=== PATIENT | male | born 1970 | race Caucasian/White ===

== ENCOUNTER 2019-10-13 08:39 | Observation (INO) | payer OTHER ==
[~2019-10-13] VITALS: Ht 193 cm; Wt 85.5 kg
[2019-10-13] MEDS ORDERED: METO25ER PO (09:03)
[2019-10-13] MEDS ORDERED: LISI20 PO (09:03)
[2019-10-13] MEDS ORDERED: CLOP75 PO (09:03)
[2019-10-13] MEDS ORDERED: Aspirin EC81 MG PO (09:04)
[2019-10-13 09:16] LABS: BASOPHILS ABSOLUTE AUTO 0.04 K/mm3 (0.00-0.23); BASOPHILS PERCENT AUTO 1 % (0-2); EOSINOPHILS ABSOLUTE AUTO 0.31 K/mm3 (0.00-0.68); EOSINOPHILS PERCENT AUTO 6 % (0-6); Hemoglobin 15.9 g/dL (13.5-17.5); IMMATURE GRAN ABSOLUTE AUTO 0.01 K/mm3 (0.00-0.10); IMMATURE GRAN PERCENT AUTO 0 % (0-1); LYMPHOCYTES PERCENT AUTO 39 % (21-46); MONOCYTES ABSOLUTE AUTO 0.54 K/mm3 (0.16-1.47); MONOCYTES PERCENT AUTO 10 % (4-13); Mean Corpuscular HGB 32.4 pg (26.0-34.0); Mean Corpuscular HGB Conc 34.6 g/dL (31.5-36.5); Mean Corpuscular Volume 94 fL (80-100); NEUTROPHILS ABSOLUTE AUTO 2.34 K/mm3 (1.96-9.15); NEUTROPHILS PERCENT AUTO 44 % (41-73); Platelet Count 225 K/mm3 (150-400); RDW Coefficient Variation 12.9 % (11.7-14.2); RDW Standard Deviation 44.4 fL (35.1-46.3); White Blood Cell Count 5.34 K/mm3 (4.00-11.30)
[2019-10-13 09:40] LABS: Alanine Aminotransfer (ALT/SGP 62 U/L (12-78); Albumin, Blood 3.8 g/dL (3.4-5.0); Alk Phos 91 U/L (50-136); Anion Gap 6 mmol/L (6-16); Aspartate Aminotrans (AST/SGOT 25 U/L (12-37); Bilirubin, Total 0.8 mg/dL (0.1-1.0); Blood Urea Nitrogen 16 mg/dL (8-24); Bun/Creatinine Ratio 19.2 (12.0-20.0); CO2, Blood 25 mmol/L (21-32); Calcium, Blood 10.2 mg/dL (8.5-10.1); Chloride, Blood 109 mmol/L (98-108); Creatinine, Blood 0.84 mg/dL (0.60-1.20); Globulin, Blood 3.8 g/dL (2.2-4.0); Glomerular Filtration Rate >60 (60-); Glucose, Blood 130 mg/dL (70-99); Potassium, Blood 3.8 mmol/L (3.5-5.5); Sodium, Blood 140 mmol/L (136-145); Total Protein, Blood 7.6 g/dL (6.4-8.2); Troponin I <0.015 ng/mL (0.000-0.040)
--- NOTE | 2019-10-13 17:55 | NUR ---
SHIFT SUMMARY ED ADMIT AFTER LUNCH. PATIENT SETTLED INTO ROOM. DENIES PAIN, NAUSEA, AND SHORTNESS OF BREATH. UP INDEPENDENT IN ROOM. CALL LIGHT IN REACH.
--- NOTE | 2019-10-13 18:53 | NUR ---
CODE STATUS PATIENT REQUESTED TO BE HAVE CODE STATUS CHANGED FROM DNR TO FULL CODE. CALL TO DR. STANLEY, ORDERS GIVEN TO CHANGE CODE SATUS TO FULL CODE.
[2019-10-13 18:59] LABS: U Amphetamine Screen Not Detected; U Barbituate Screen Not Detected; U Benzodiazapine Screen DETECTED; U Buprenorphine Screen Not Detected; U Cannabinoids Screen DETECTED; U Cocaine Screen Not Detected; U Methadone Screen Not Detected; U Methamphetamine Screen Not Detected; U Opiates Screen Not Detected; U Oxycodone Screen Not Detected; U Phencyclidine Screen Not Detected; U Propoxyphene Screen Not Detected
--- NOTE | 2019-10-14 00:06 | NUR ---
PT requesting antianxiety rx chronic anxiety hx of using benzo to relieve but unable to recently get rx due to current primary care provider. SW referral for anxiety and help with Primary care referral. Counselled on ETOH cessation. NAIDA 9 currently. Will ask hospitalist for rx to tx.
--- NOTE | 2019-10-14 00:31 | NUR ---
Called [facility] for rx to tx CO anxiety and CIWA of 9. 1 dose 1 mg iv obtained. Had 2 0.5 mg IV doses close together in ER with stated good relief.
[2019-10-14 05:33] LABS: Anion Gap 6 mmol/L (6-16); Blood Urea Nitrogen 16 mg/dL (8-24); Bun/Creatinine Ratio 18.6 (12.0-20.0); CO2, Blood 25 mmol/L (21-32); Chloride, Blood 108 mmol/L (98-108); Creatinine, Blood 0.86 mg/dL (0.60-1.20); Glomerular Filtration Rate >60 (60-); Glucose, Blood 98 mg/dL (70-99); Potassium, Blood 4.1 mmol/L (3.5-5.5); Sodium, Blood 139 mmol/L (136-145)
--- NOTE | 2019-10-14 06:03 | NUR ---
PT denies chest pain, co acute anxiety relieved by ativan 1 mg iv x 1. PT co severe anxiety related to VT x 2 and 2 ruptured disks in back. He had had oral infection x 1 year he CO being unable to resolve. PT says he is unable to get back surgery related to oral infection. VSS. PT on Plavix and 81 mg ASA. Discussed need for ETOH cessation, PT minimizes use says it is only 1/2 pint daily for pain control. SW referral made.
[2019-10-14 08:17] LABS: CHOL/HDL RATIO 1.9; Cholesterol 96 mg/dL (50-200); HDL Cholesterol 50 mg/dL (>39); LDL/HDL RATIO 0.4; Low Density Lipoprotein Chol 19 mg/dL (0-110); Triglycerides 135 mg/dL (30-160); Very Low Density Lipoprot Chol 27 mg/dL (6-32)
[2019-10-14] MEDS ORDERED: ATOR20 (08:50)
[2019-10-14] MEDS ORDERED: LIDO700A20 TOP (10:24)
--- NOTE | 2019-10-14 10:56 | NUR ---
DISCHARGE DISCHARGE MEDICATIONS AND INSTRUCTIONS EXPLAINED TO PATIENT. PATIENT STATED UNDERSTANDING. CARE MANAGEMENT PROVIDED PATIETN WITH A LIST OF NEW PCP OPTIONS. PATIENT REPORTS HE HAS AN APPOINTMENT ON WEDNESDAY. IV REMOVED WITHOUT DIFFICULTY. BELONGINGS WITH PATIENT. PATIENT AMBULATED TO PRIVATE VEHICLE.
== END 2019-10-14 10:40 | disposition home or self-care (01) ==
LOC: ER 08:39 → MEDS 08:40
PROVIDERS: Emergency Medicine; Nurse Practitioner Acute Care; ADMIT Internal Medicine
DX: R07.9 Chest pain, unspecified (principal); I25.10 Atherosclerotic heart disease of native coronary artery without angina pectoris; F10.129 Alcohol abuse with intoxication, unspecified; F41.1 Generalized anxiety disorder; M54.9 Dorsalgia, unspecified; G89.4 Chronic pain syndrome; F17.210 Nicotine dependence, cigarettes, uncomplicated; Z66 Do not resuscitate; Z79.82 Long term (current) use of aspirin; Z79.02 Long term (current) use of antithrombotics/antiplatelets; Z79.899 Other long term (current) drug therapy; Z95.5 Presence of coronary angioplasty implant and graft; Y90.6 Blood alcohol level of 120-199 mg/100 ml
CPT/HCPCS: 36415; 71046; 80048; 80053; 80061; 83735; 84484; 85025; 93005; 93010; 96372; 96374; 96376; 99285-25; G0378; G0480; J1650; J2060

== ENCOUNTER 2020-07-17 22:21 | Observation (INO) | payer OTHER ==
[~2020-07-17] VITALS: Ht 190.5 cm; Wt 100.7 kg
[~2020-07-17 22:21] MED LIST: ATOR20 PO; Aspirin EC81 MG PO; CLOP75 PO; LIDO700A20 TOP; LISI20 PO; METO25ER PO
[2020-07-17 23:03] LABS: BASOPHILS ABSOLUTE AUTO 0.05 K/mm3 (0.00-0.23); BASOPHILS PERCENT AUTO 0 % (0-2); EOSINOPHILS ABSOLUTE AUTO 0.15 K/mm3 (0.00-0.68); EOSINOPHILS PERCENT AUTO 1 % (0-6); Hematocrit 44.7 % (37.0-53.0); Hemoglobin 15.3 g/dL (13.5-17.5); IMMATURE GRAN ABSOLUTE AUTO 0.06 K/mm3 (0.00-0.10); IMMATURE GRAN PERCENT AUTO 0 % (0-1); LYMPHOCYTES ABSOLUTE AUTO 1.63 K/mm3 (0.84-5.20); LYMPHOCYTES PERCENT AUTO 11 % (21-46); MONOCYTES ABSOLUTE AUTO 0.77 K/mm3 (0.16-1.47); MONOCYTES PERCENT AUTO 5 % (4-13); Mean Corpuscular HGB 32.6 pg (26.0-34.0); Mean Corpuscular HGB Conc 34.2 g/dL (31.5-36.5); Mean Corpuscular Volume 95 fL (80-100); Mean Platelet Volume 9.4 fL (9.1-12.4); NEUTROPHILS ABSOLUTE AUTO 12.11 K/mm3 (1.96-9.15); NEUTROPHILS PERCENT AUTO 82 % (41-73); Platelet Count 240 K/mm3 (150-400); RDW Coefficient Variation 12.7 % (11.7-14.2); RDW Standard Deviation 44.7 fL (35.1-46.3); White Blood Cell Count 14.77 K/mm3 (4.00-11.30)
[2020-07-17 23:23] LABS: Alanine Aminotransfer (ALT/SGP 70 U/L (12-78); Albumin, Blood 4.1 g/dL (3.4-5.0); Alk Phos 100 U/L (50-136); Anion Gap 7 mmol/L (6-16); Aspartate Aminotrans (AST/SGOT 35 U/L (12-37); Bilirubin, Total 0.8 mg/dL (0.1-1.0); Blood Urea Nitrogen 14 mg/dL (8-24); Bun/Creatinine Ratio 14.9 (12.0-20.0); CO2, Blood 23 mmol/L (21-32); Chloride, Blood 106 mmol/L (98-108); Creatinine, Blood 0.94 mg/dL (0.60-1.20); Globulin, Blood 4.1 g/dL (2.2-4.0); Glomerular Filtration Rate >60 (60-); Glucose, Blood 162 mg/dL (70-99); Potassium, Blood 3.7 mmol/L (3.5-5.5); Sodium, Blood 136 mmol/L (136-145); Total Protein, Blood 8.2 g/dL (6.4-8.2)
[2020-07-17] MEDS ORDERED: GABA100 PO (23:42)
[2020-07-17] MEDS ORDERED: BUSP10 PO (23:42)
[2020-07-18 00:49] LABS: Source, Urine Clean Catch
[2020-07-18 00:53] LABS: Bilirubin, Urine Neg (Neg); Blood, Urine Neg (Neg); Glucose Qualitative, Urine Neg (Neg); Ketones, Urine 1+ (Neg); Leukocyte Esterase, Urine Neg (Neg); Nitrite, Urine Neg (Neg); Protein, Urine 1+ (Neg); Specific Gravity, Urine 1.015 (1.003-1.022); Urobilinogen, Urine NORM (Normal)
[2020-07-18 00:55] LABS: Appearance, Urine Clear (Clear); Color, Urine Yellow (P-Yellow)
--- NOTE | 2020-07-18 01:35 | NUR ---
PT NEW ADMIT FOR APPY. PT A/O, VSS. PT C/O SHARP PAIN IN RLQ ABD. ABD MOD DISTENDED, BT HYPO. PT REP PAIN/N/V SINCE APPX 1700 07/17/20. IVF RUNNING PER ORDERS. PT ORIENTED TO ROOM/CALL LIGHT. PT NPO FOR PLAN FOR SURGERY TODAY.
[2020-07-18] MEDS ORDERED: CLON.5 PO (01:46)
[2020-07-18 02:06] LABS: Adenovirus Not Detected (NOT DETECT); Bordetella pertussis Not Detected (NOT DETECT); Chlamydophila pneumoniae Not Detected (NOT DETECT); Coronavirus 229E Not Detected (NOT DETECT); Coronavirus HKU1 Not Detected (NOT DETECT); Coronavirus NL63 Not Detected (NOT DETECT); Coronavirus OC43 Not Detected (NOT DETECT); Human Metapneumovirus Not Detected (NOT DETECT); Human Rhinovirus/Enterovirus Not Detected (NOT DETECT); Influenza A/2009-H1 Not Detected (NOT DETECT); Influenza A/H1 Not Detected (NOT DETECT); Influenza A/H3 Not Detected (NOT DETECT); Influenza B Not Detected (NOT DETECT); Mycoplasma pneumoniae Not Detected (NOT DETECT); Parainfluenza Virus 1 Not Detected (NOT DETECT); Parainfluenza Virus 2 Not Detected (NOT DETECT); Parainfluenza Virus 3 Not Detected (NOT DETECT); Parainfluenza Virus 4 Not Detected (NOT DETECT); Respiratory Syncytial Virus Not Detected (NOT DETECT); SARS-Cov-2 (COVID-19), BioFire Not Detected (NOT DETECT)
--- NOTE | 2020-07-18 05:58 | NUR ---
PT NEW ADMIT THIS SHIFT FOR APPY. PT VSS. PT REMAINS PAINFUL, REP PAIN BETTER MGD W/2 MG IV DILAUDID. PT REP MILD NAUSEA, NO EMESIS. PT NPO FOR PLAN FOR SURGERY, IVF CONT PER ORDERS. PT INDEP IN ROOM, IS USING CALL LIGHT FOR ASSISTANCE.
--- NOTE | 2020-07-18 08:16 | NUR ---
DR CASTANEDA HERE THIS AM, PLAN TO CONTINUE IV ABX, HOLD OR SECONDARY TO ANITCOAG THERAPY. PATIENT HAPPY WITH PLAN.
--- NOTE | 2020-07-18 18:25 | NUR ---
SHIFT SUMMARY NO ACUTE CHANGES THIS SHIFT, MEDICATED PER MAR FOR PAIN, NO OTHER C/O ANY KIND, BEDRESTING AT THIS TIME, CALL LIGHT IN REACH, WILL CONT TO MONITOR UNTIL REPORT GIVEN TO NOC RN.
[2020-07-19 04:31] LABS: BASOPHILS ABSOLUTE AUTO 0.03 K/mm3 (0.00-0.23); BASOPHILS PERCENT AUTO 0 % (0-2); EOSINOPHILS ABSOLUTE AUTO 0.12 K/mm3 (0.00-0.68); EOSINOPHILS PERCENT AUTO 2 % (0-6); Hemoglobin 12.1 g/dL (13.5-17.5); IMMATURE GRAN ABSOLUTE AUTO 0.03 K/mm3 (0.00-0.10); IMMATURE GRAN PERCENT AUTO 0 % (0-1); LYMPHOCYTES ABSOLUTE AUTO 1.04 K/mm3 (0.84-5.20); LYMPHOCYTES PERCENT AUTO 14 % (21-46); MONOCYTES ABSOLUTE AUTO 0.51 K/mm3 (0.16-1.47); MONOCYTES PERCENT AUTO 7 % (4-13); Mean Corpuscular HGB 32.4 pg (26.0-34.0); Mean Corpuscular HGB Conc 32.7 g/dL (31.5-36.5); Mean Corpuscular Volume 99 fL (80-100); Mean Platelet Volume 9.5 fL (9.1-12.4); NEUTROPHILS ABSOLUTE AUTO 5.69 K/mm3 (1.96-9.15); NEUTROPHILS PERCENT AUTO 77 % (41-73); Platelet Count 169 K/mm3 (150-400); RDW Coefficient Variation 13.1 % (11.7-14.2); RDW Standard Deviation 47.7 fL (35.1-46.3); Red Blood Cell Count 3.73 M/mm3 (4.30-5.90); White Blood Cell Count 7.42 K/mm3 (4.00-11.30)
[2020-07-19 04:52] LABS: Anion Gap 4 mmol/L (6-16); Blood Urea Nitrogen 5 mg/dL (8-24); Bun/Creatinine Ratio 5.7 (12.0-20.0); CO2, Blood 27 mmol/L (21-32); Calcium, Blood 9.5 mg/dL (8.5-10.1); Chloride, Blood 108 mmol/L (98-108); Creatinine, Blood 0.87 mg/dL (0.60-1.20); Glomerular Filtration Rate >60 (60-); Glucose, Blood 151 mg/dL (70-99); Potassium, Blood 3.6 mmol/L (3.5-5.5); Sodium, Blood 139 mmol/L (136-145)
--- NOTE | 2020-07-19 06:12 | NUR ---
PT VSS T/O NIGHT. PAIN MGD PER EMAR W/REP RELIEF. PT SAIDA CL PO, NO N/V. PT PASSING FLATUS, HAD 1 BM THIS AM. ABD REMAINS DISTENDED, SOMEWHAT LESS FIRM. IV ABX CONT PER ORDERS.
[2020-07-19] MEDS ORDERED: ACET325 PO (13:50)
[2020-07-19] MEDS ORDERED: AMOCLA875 PO (13:51)
[2020-07-19] MEDS ORDERED: DOCU100 PO (13:52)
[2020-07-19] MEDS ORDERED: OXAYDO5 MG PO (13:53)
[2020-07-19] MEDS ORDERED: ASPIR 8181 M1 PO (13:54)
--- NOTE | 2020-07-19 17:43 | NUR ---
DISCHARGED REVIEWED DC PAPERWORK W/PT. VERBALIZED UNDERSTANDING. CALLED PRESCRIPTIONS IN TO [facility] & GAVE PT SCRIPT FOR PAIN MEDICATION. DC'D IV, CATHETER INTACT. PT LEFT UNIT BY AMBULATION W/POSSESSIONS AND PRESCRIPTION IN HAND TO RIDE AWAITING OUTSIDE.
== END 2020-07-19 17:42 | disposition home or self-care (01) ==
LOC: ER 22:21 → SURS 22:22 → ER 23:48 → SURS 07-18 00:30
PROVIDERS: Physician Assistant; Student in an Organized Health Care Education/Training Program; Surgery; ADMIT Surgery
DX: K35.80 Unspecified acute appendicitis (principal); I70.0 Atherosclerosis of aorta; K40.20 Bilateral inguinal hernia, without obstruction or gangrene, not specified as recurrent; F17.210 Nicotine dependence, cigarettes, uncomplicated; Z79.899 Other long term (current) drug therapy; Z79.82 Long term (current) use of aspirin; Z20.828 Contact with and (suspected) exposure to other viral communicable diseases
CPT/HCPCS: 0202U; 36415; 74177; 80048; 80053; 83690; 85025; 93005; 93010; 96361; 96365; 96366; 96375; 96376; 99285-25; G0378; J0295; J1170; J1885; J2270; J2405; J7030; Q9967

== ENCOUNTER → 2023-09-17 | Outpatient (CLI) | payer OTHER ==
[~2023-09-17] MED LIST changes: +ACET325 PO; +AMOCLA875 PO; +ASPIR 8181 M1 PO; +AUGMENTIN 875-1 EACH PO; +BUSP10 PO; +CLON.5 PO; +DOCU100 PO; +GABA100 PO; +OXAYDO5 MG PO; +Percocet 5-3251 EACH PO
== END ==
LOC: LAB SHORT 07:51 → LAB 07:51
DX: L57.0 Actinic keratosis (principal); L82.1 Other seborrheic keratosis; L85.8 Other specified epidermal thickening
CPT/HCPCS: 88305

== ENCOUNTER → 2025-05-14 | Outpatient (CLI) | payer OTHER ==
[~2025-05-14] MED LIST changes: +ATIVAN0.5 MG PO; +Carvedilol12.5 MG PO; +Crestor40 MG PO; +FENO54 PO; +Lisinopril2.5 MG PO; +PLAVIX75 MG PO; +Prinivil10 MG PO; +TICA90TA PO
== END ==
LOC: LAB SHORT 17:55 → LAB 17:55
DX: M79.675 Pain in left toe(s) (principal); R23.4 Changes in skin texture; T14.8XXA Other injury of unspecified body region, initial encounter; L08.9 Local infection of the skin and subcutaneous tissue, unspecified; L02.612 Cutaneous abscess of left foot
CPT/HCPCS: 87070; 87075; 87205

== ENCOUNTER → 2025-05-24 | Outpatient (CLI) | payer OTHER | END | disposition home or self-care (01) | LOC: LAB 15:08 → LAB SHORT 15:08 | DX: L98.9 Disorder of the skin and subcutaneous tissue, unspecified (principal) | CPT/HCPCS: 88304; 88312 ==